=== PATIENT | female | born 1965 | race Caucasian/White ===

== ENCOUNTER 2020-01-14 17:10 | Emergency (ER) | payer MEDICAID ==
[2020-01-14 18:46] LABS: ABSOLUTE BASOPHILS # (AUTO) 0.1 10^3/uL (0.0-0.2); ABSOLUTE EOSINOPHILS # (AUTO) 0.2 10^3/uL (0.0-0.6); ABSOLUTE LYMPHOCYTES (AUTO) 2.7 10^3/uL (0.5-4.7); ABSOLUTE MONOCYTES (AUTO) 0.7 10^3/uL (0.1-1.4); ABSOLUTE NEUT (AUTO) 6.5 10^3/uL (1.7-8.2); BASOPHILS % (AUTO) 0.6 % (0-2); EOSINOPHILS % (AUTO) 1.5 % (0-6); HEMOGLOBIN 15.5 g/dL (12.0-15.5); INTERNATIONAL RATION (INR) 0.85; LYMPHOCYTES % (AUTO) 26.5 % (13-45); MEAN CORPUSCULAR HEMOGLOBIN 32.3 pg (27.0-33.4); MEAN CORPUSCULAR HGB CONC 34.5 g/dL (32.0-36.0); MEAN CORPUSCULAR VOLUME 94 fl (80-97); MONOCYTES % (AUTO) 7.2 % (3-13); PLATELET COUNT 361 10^3/uL (150-450); PROTHROMBIN TIME 11.6 SEC (11.4-15.4); RED CELL DISTRIBUTION WIDTH 13.1 % (11.5-14.0); SEGMENTED NEUTROPHILS % (AUTO) 64.2 % (42-78); TOTAL CELLS COUNTED % (AUTO) 100 %; WHITE BLOOD COUNT 10.1 10^3/uL (4.0-10.5)
[2020-01-14 18:57] LABS: ALBUMIN 4.8 g/dL (3.5-5.0); ALKALINE PHOSPHATASE 91 U/L (38-126); ANION GAP 7 (5-19); ASPARTATE AMINO TRANSFERASE 91 U/L (14-36); BILIRUBIN,DIRECT 0.1 mg/dL (0.0-0.4); BILIRUBIN,TOTAL 0.8 mg/dL (0.2-1.3); BLOOD UREA NITROGEN 11 mg/dL (7-20); CALCIUM 10.1 mg/dL (8.4-10.2); CARBON DIOXIDE 29 mmol/L (22-30); CHLORIDE 102 mmol/L (98-107); GLUCOSE 116 mg/dL (75-110); POTASSIUM 4.1 mmol/L (3.6-5.0); TOTAL PROTEIN 8.9 g/dL (6.3-8.2)
--- NOTE | 2020-01-14 19:08 | RADIOLOGY REPORT (SQ) ---
EXAM DESCRIPTION: CHEST SINGLE VIEW IMAGES COMPLETED DATE/TIME: 01/14/2020 6:42 pm REASON FOR STUDY: swollen left breast COMPARISON: None. EXAM PARAMETERS: NUMBER OF VIEWS: One view. TECHNIQUE: Single frontal radiographic view of the chest acquired. RADIATION DOSE: NA LIMITATIONS: None. FINDINGS: LUNGS AND PLEURA: No opacities, masses or pneumothorax. No pleural effusion. MEDIASTINUM AND HILAR STRUCTURES: No masses. Contour normal. HEART AND VASCULAR STRUCTURES: Heart normal in size. Normal vasculature. BONES: No acute findings. HARDWARE: None in the chest. OTHER: No other significant finding. IMPRESSION: NO ACUTE RADIOGRAPHIC FINDING IN THE CHEST. TECHNICAL DOCUMENTATION: JOB ID: [id number] 2010 [employer]- All Rights Reserved Reading location - IP/workstation name: [email or web address]
[2020-01-14] MEDS ORDERED: MORPHINE SULFATE 10 MG/ML INJ IV ONE (19:20)
[2020-01-14] MEDS ORDERED: ONDANSETRON HCL INJ/PF 4 MG/2 ML SDV IV ONE (19:20)
--- NOTE | 2020-01-14 19:22 | ER Document Report ---
ED General - General Chief Complaint: Breast Problem Stated Complaint: SHORTNESS OF BREATH Time Seen by Provider: 01/14/20 18:11 - HPI Notes: Patient is a 54-year-old female who presents to the emergency department for evaluation. She states over the last 48 hours she developed hot and cold chills, body aches, and left breast redness. She has pain that she puts at a 3 out of 10 at rest, but states it rises quickly to an 8 out of 10 with any sort of movement. She states she is up-to-date on her mammograms, last one being january. She describes the pain as an aching and throbbing. She has not really tried any medications to make it better. - Related Data Allergies/Adverse Reactions: No Known Allergies Allergy (Verified 01/14/20 17:37) Past Medical History - General Information source: Patient - Social History Smoking Status: Current Some Day Smoker Family History: Reviewed & Not Pertinent Patient has suicidal ideation: No Patient has homicidal ideation: No Infectious Medical History: Reports: Hx MRSA Past Surgical History: Reports: Hx Herniorrhaphy, Hx Orthopedic Surgery Review of Systems - Review of Systems Constitutional: See HPI -: Yes All other systems reviewed and negative Physical Exam - Vital signs Vitals: Temp Pulse Resp BP Pulse Ox 98.6 F 105 H 18 127/79 H 97 01/14/20 17:37 01/14/20 17:37 01/14/20 17:37 01/14/20 17:37 01/14/20 17:37 - Notes Notes: Vital signs reviewed, please refer to chart. Head is normocephalic, atraumatic. Pupils equal round, reactive to light. Neck is supple without meningismus. Heart is regular rate and rhythm. Lungs are clear to auscultation bilaterally. Abdomen is soft, nontender, normoactive bowel sounds throughout. Extremities without cyanosis, clubbing. Posterior calves are nontender. Peripheral pulses are equal. Patient is awake, alert, neurological exam is nonfocal. Examination of the left breast feels diffuse erythema and induration. No palpable fluctuance appreciated. No regional adenopathy. I am unable to express any discharge. Breasts are symmetrical in appearance. Course - Re-evaluation Re-evalutation: 01/14/20 19:19 Patient presents to the emergency department for evaluation. Laboratory investigations were obtained. The patient does appear to have mastitis, al though we talked at length about how this is abnormal in her age group. I explained to the patient that this was certainly concerning for a possibility of inflammatory breast cancer, and further evaluation would definitely need to be pursued. I explained her she needs a mammogram to evaluate for this condition. She voiced understanding. Otherwise, she does have a history of MRSA, so the patient was given a dose of IV clindamycin. We will give her pain medication, antibiotics, and she is to follow-up with primary care. She is to return to the ER with worsening. - Vital Signs Vital signs: Temp Pulse Resp BP Pulse Ox 98.6 F 105 H 18 127/79 H 97 01/14/20 17:37 01/14/20 17:37 01/14/20 17:37 01/14/20 17:37 01/14/20 17:37 - Laboratory Result Diagrams: 01/14/20 18:15 01/14/20 18:15 Laboratory results interpreted by me: 01/14/20 18:15 Glucose 116 H AST 91 H ALT 112 H Total Protein 8.9 H Discharge - Discharge Clinical Impression: Mastitis in female Condition: Stable Disposition: HOME, SELF-CARE Instructions: Mastitis ([facility]) Additional Instructions: Your findings today are most consistent with mastitis, or an infection of the left breast. Given your age group, however, we are unable to rule out a more concerning conditions such as inflammatory breast cancer. It is very important that you seek out mammogram and further testing to rule out this condition. Take all antibiotics as prescribed until gone. Tylenol or ibuprofen as needed for pain. If you develop worsening or new concerning symptoms of any sort, please return immediately to the emergency department for evaluation. Prescriptions: Clindamycin HCl 300 mg PO TID #21 capsule
[2020-01-14] MEDS ORDERED: CLINDAMYCIN 600 MG/D5W RTU 600 MG/50 ML RTUPB IV ONE (20:43)
[2020-01-14 21:58] VITALS: BP 115/78
[2020-01-14] MEDS ORDERED: CLINDAMYCIN PHOSPHATE 750 MG in DEXTROSE 5%-WATER 100 ML IV SCH (22:00)
== END 2020-01-14 22:19 | disposition home or self-care (01) ==
LOC: ER 17:10
DX: N61.0 Mastitis without abscess (principal); N64.4 Mastodynia; R06.02 Shortness of breath; M79.10 Myalgia, unspecified site; F17.200 Nicotine dependence, unspecified, uncomplicated
CPT/HCPCS: 36415; 87040; 83605; 85025; 85610; 80053; 71045; J2270; J2405

== ENCOUNTER 2020-02-15 04:40 | Inpatient (IN) | payer SELFPAY ==
[2020-02-15] MEDS ORDERED: NORMAL SALINE 500 ML IV ONE ×2 (05:26→05:45)
[2020-02-15] MEDS ORDERED: ONDANSETRON HCL INJ/PF 4 MG/2 ML SDV IV ONE (05:28)
[2020-02-15] MEDS ORDERED: MORPHINE SULFATE 10 MG/ML INJ IV ONE (05:28)
[2020-02-15] MEDS ORDERED: FENTANYL CITRATE INJ/PF 100 MCG/2 ML AMPUL IV ONE (05:29)
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
--- NOTE | 2020-02-15 05:44 | RADIOLOGY REPORT (SQ) ---
EXAM DESCRIPTION: XR FEMUR 2 VIEWS COMPLETED DATE/TME: 02/15/2020 00:00 CLINICAL HISTORY: 54 years, Female, bone pain COMPARISON: None. NUMBER OF VIEWS: 3 TECHNIQUE: 3 view left femur LIMITATIONS: None. FINDINGS: Comminuted fracture of the mid femoral diaphysis. Fracture lines are seen extending obliquely along the distal portion of the fracture fragment as well as a fracture line extending obliquely to the intercondylar region of the distal femur. Associated soft tissue changes. Osteopenia. Degenerative change of the knee IMPRESSION: Comminuted fracture of the femur, as above. Fracture lines extend to the intercondylar region. copyright 2010 [employer]- All Rights Reserved
[2020-02-15] MEDS ORDERED: HYDROMORPHONE HCL INJ/PF 2 MG/ML AMPULE IV ONE (05:46)
[2020-02-15 05:58] LABS: INTERNATIONAL RATION (INR) 0.88; PROTHROMBIN TIME 11.9 SEC (11.4-15.4)
[2020-02-15 06:08] LABS: ABSOLUTE EOSINOPHILS # (AUTO) 0.2 10^3/uL (0.0-0.6); ABSOLUTE LYMPHOCYTES (AUTO) 2.9 10^3/uL (0.5-4.7); ABSOLUTE MONOCYTES (AUTO) 0.4 10^3/uL (0.1-1.4); ABSOLUTE NEUT (AUTO) 3.2 10^3/uL (1.7-8.2); BASOPHILS % (AUTO) 0.7 % (0-2); EOSINOPHILS % (AUTO) 2.5 % (0-6); HEMOGLOBIN 13.7 g/dL (12.0-15.5); MEAN CORPUSCULAR HEMOGLOBIN 32.1 pg (27.0-33.4); MEAN CORPUSCULAR HGB CONC 34.2 g/dL (32.0-36.0); MEAN CORPUSCULAR VOLUME 94 fl (80-97); MONOCYTES % (AUTO) 6.2 % (3-13); PLATELET COUNT 330 10^3/uL (150-450); RED BLOOD COUNT 4.26 10^6/uL (3.72-5.28); RED CELL DISTRIBUTION WIDTH 13.2 % (11.5-14.0); SEGMENTED NEUTROPHILS % (AUTO) 47.6 % (42-78); TOTAL CELLS COUNTED % (AUTO) 100 %; WHITE BLOOD COUNT 6.8 10^3/uL (4.0-10.5)
[2020-02-15 06:26] LABS: ALBUMIN 4.1 g/dL (3.5-5.0); ALKALINE PHOSPHATASE 58 U/L (38-126); ANION GAP 9 (5-19); ASPARTATE AMINO TRANSFERASE 75 U/L (14-36); BILIRUBIN,TOTAL 0.2 mg/dL (0.2-1.3); BLOOD UREA NITROGEN 17 mg/dL (7-20); CALCIUM 9.2 mg/dL (8.4-10.2); CARBON DIOXIDE 23 mmol/L (22-30); CHLORIDE 106 mmol/L (98-107); GLUCOSE 112 mg/dL (75-110); POTASSIUM 4.3 mmol/L (3.6-5.0); TOTAL PROTEIN 7.3 g/dL (6.3-8.2)
--- NOTE | 2020-02-15 07:35 | RADIOLOGY REPORT (SQ) ---
AP Portable chest: 02/15/2020 6:33 AM CDT History: 54-year old patient with preoperative respiratory evaluation. Comparison: None available Findings: The cardiomediastinal silhouette is normal in size. No pneumothorax is seen. No acute airspace opacities are seen. No discrete pleural effusion is apparent. Impression: No acute airspace opacities are seen.
[2020-02-15] MEDS ORDERED: BUPIVACAINE HCL 0.5 % INJ/PF 30 ML SDV ONE (07:36)
[2020-02-15] MEDS ORDERED: ONDANSETRON HCL INJ/PF 4 MG/2 ML SDV ONE (07:56)
[2020-02-15] MEDS ORDERED: MIDAZOLAM 2 MG/2 ML INJ ONE (07:56)
[2020-02-15] MEDS ORDERED: PROPOFOL INJ 200 MG/20 ML VIAL IV ONE ×3 (07:56→09:34)
[2020-02-15] MEDS ORDERED: KETAMINE HCL INJ 500 MG/10 ML VIAL ONE (07:56)
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
[2020-02-15] MEDS ORDERED: CLINDAMYCIN PHOSPHATE INJ 300 MG/2 ML SDV ONE (08:12)
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
[2020-02-15] MEDS ORDERED: PROMETHAZINE HCL INJ 25 MG/1 ML VIAL IV PRN (08:56)
[2020-02-15] MEDS ORDERED: FENTANYL CITRATE INJ/PF 100 MCG/2 ML AMPUL IV PRN ×3 (08:56)
[2020-02-15] MEDS ORDERED: MEPERIDINE HCL/PF INJ 25 MG/1 ML DISP.SYRIN IV PRN (08:56)
[2020-02-15] MEDS ORDERED: DIPHENHYDRAMINE HCL 50 MG/ML VIAL IV PRN (08:56)
[2020-02-15] MEDS ORDERED: MORPHINE SULFATE 10 MG/ML INJ IV PRN (08:56)
[2020-02-15] MEDS ORDERED: PHENYLEPHRINE HCL INJ/PF 10 MG/1 ML SDV ONE (10:00)
[2020-02-15] MEDS ORDERED: GLYCOPYRROLATE 1 MG/5 ML VIAL ONE (10:00)
[2020-02-15] MEDS ORDERED: BUPIVACAINE HCL 0.5 % INJ/PF 30 ML SDV INJ ONE (10:19)
[2020-02-15] MEDS ORDERED: HYDROMORPHONE HCL INJ/PF 2 MG/ML AMPULE ONE (10:39)
--- NOTE | 2020-02-15 10:58 | EKG REPORT ---
SEVERITY:- ABNORMAL ECG - SINUS RHYTHM ABNRM R PROG, CONSIDER ASMI OR LEAD PLACEMENT : Confirmed by: Wai Bloom MD 15-Feb-2020 10:57:45
[2020-02-15] MEDS ORDERED: ACETAMINOPHEN 1,000 MG/100 ML RTUPB IV ONE (10:59)
[2020-02-15] MEDS ORDERED: KETOROLAC TROMETHAMINE INJ/PF 30 MG/1 ML SDV ONE (10:59)
--- NOTE | 2020-02-15 11:00 | Operative Report ---
Operative Report DATE OF SURGERY: 02/15/20 PREOPERATIVE DIAGNOSIS: Left distal 1/3 femoral shaft fracture with intra-artic ular extension POSTOPERATIVE DIAGNOSIS: Left distal 1/3 femoral shaft fracture with intra- articular extension OPERATION: Left retrograde intramedullary nail distal 1/3 femoral shaft fracture with intra-articular extension SURGEON: ADONAY RASMUSSEN ANESTHESIA: Spinal COMPLICATIONS: None ESTIMATED BLOOD LOSS: 100 cc PROCEDURE: Indication for above procedure: 54-year-old female who tripped into a large ditch resulting in an injury to her left leg. Patient was unable to ambulate radiographs in emergency room demonstrate distal femur fracture. At that point we discussed treatment options including operative versus nonoperative intervention. Risk and benefits of the surgical procedure were explained patient verbalized understanding consented for surgical procedure. Procedure In Detail: Patient was seen and evaluated in the preoperative holding area. The LEFT lower extremity was initialized and marked. Patient received 600 mg of clindamycin IV for bacterial prophylaxis. Patient was taken back to the operative room where transferred to the operative table and placed under anesthesia and spinal placed. A surgical team debriefing was performed ensuring all instrumentation was available, the surgical procedure was discussed with possible concerns reviewed. The lower extremity was prepped with ChloraPrep and draped in a sterile fashion A timeout was done identifying correct patient, procedure and extremity everyone in attendance agree with this and verbalized no concerns. Longitudinal skin incision was made midline over the patellar tendon. Blunt dissection was performed. Medial parapatellar approach was utilized and patellar tendon retracted laterally to expose the distal femur. Through the arthrotomy intra-articular extension was noted along the anterior aspect of the femur where it exited but was not displaced. The starting point was noted along the intercondylar notch just anterior to blooming stats line confirmed on AP and lateral projection. Once confirmed opening reamer was utilized. With the patient in the radiolucent triangle traction was performed and a bump placed under the fracture site to reduce it out to length in an acceptable alignment. Ball-tipped guidewire was then advanced to the proximal femur and measured to be 380 mm. Reaming then began starting with a 10 mm reamer reaming up to a 13 mm reamer at that point decision was made to place a 12 mm x 380 mm Jerilyn retrograde nail this was advanced across the fracture site while maintaining reduction. Aiming arm was placed distally. Stab incision medially was made near and far cortices drilled and interlocking screw was inserted. This was then repeated a second medial to lateral screw placed and finally a third medial to lateral screw. Due to the intra-articular extension decision was made to place a [place] locking bolt through the nail. Therefore cortices were drilled appropriate guidewire was inserted from lateral to medial and a size 75 bolt was inserted and tightened medially and laterally. Engagement of the goal was confirmed on AP projection. While maintaining reduction of the fracture with traction proceed with proximal locking. Perfect circles were obtained stab incision was made blunt dissection was performed to the anterior cortex of the femur. Soft tissues were protected and the near and far cortices were drilled. Appropriate size locking screw was placed completing fixation of the construct. Final C arm fluoroscopy images were obtained confirming adequate reduction of the fracture. Screw lengths were confirmed appropriate size on multiple oblique views. Patient had no evidence of malrotation or shortening compared to the noninvolved right lower extremity. Wound was copiously irrigated with normal saline. Any remnant bleeding was controlled with cautery until wound was dry. Capsule of the medial patellar approach was closed with interrupted 0 Vicryl suture. Subcutaneous tissues closed with 3-0 Monocryl and Vicryl. Skin was closed with subcuticular 3-0 Monocryl reinforced with Dermabond and Steri-Strips. OpSite dressings were placed. 30 cc of 0.5% ropivacaine without epinephrine was injected for postop pain control. Sponge counts, instrument counts, needle counts were correct. Patient was then awoken from anesthesia. Transferred from the operating room table to the operating room stretcher. There was no intraoperative complications patient tolerated procedure well stable to PACU. Postop plan: Patient will begin physical therapy postop day #1 maintaining partial weightbearing left lower extremity. Will be started on Xarelto for DVT prophylaxis. Implants used: Jerilyn retrograde intramedullary nail 380 mm x 12 mm with 75 mm locking bolt
--- NOTE | 2020-02-15 11:59 | RADIOLOGY REPORT (SQ) ---
EXAM DESCRIPTION: FEMUR LEFT; NO CHG FLUORO IMAGES COMPLETED DATE/TIME: 02/15/2020 10:43 am REASON FOR STUDY: LEFT FEMUR COMPARISON: Left femur two views 02/15/2020 FLUOROSCOPY TIME: 2.4 minutes 8 digital fluoroscopic images saved to PACS. TECHNIQUE: Intra-operative images acquired during surgical procedure to evaluate progress. NUMBER OF IMAGES: 8 digital fluoroscopic images LIMITATIONS: None. FINDINGS: Intra procedural imaging and fluoro during ORIF spiral fracture distal left femur. Good a lignment. Please see the operative report for further details IMPRESSION: IMAGE(S) OBTAINED DURING PROCEDURE. COMMENT: Quality ID [id number]: Final reports for procedures using fluoroscopy that document radiation exp osure indices, or exposure time and number of fluorographic images (if radiation exposure indices are not available) Please consult full operative report of the attending physician for description of the procedure. TECHNICAL DOCUMENTATION: JOB ID: [id number] 2010 [employer]- All Rights Reserved Reading location - IP/workstation name: [email or web address]
--- NOTE | 2020-02-15 11:59 | RADIOLOGY REPORT (SQ) ---
EXAM DESCRIPTION: FEMUR LEFT; NO CHG FLUORO IMAGES COMPLETED DATE/TIME: 02/15/2020 10:43 am REASON FOR STUDY: LEFT FEMUR COMPARISON: Left femur two views 02/15/2020 FLUOROSCOPY TIME: 2.4 minutes 8 digital fluoroscopic images saved to PACS. TECHNIQUE: Intra-operative images acquired during surgical procedure to evaluate progress. NUMBER OF IMAGES: 8 digital fluoroscopic images LIMITATIONS: None. FINDINGS: Intra procedural imaging and fluoro during ORIF spiral fracture distal left femur. Good a lignment. Please see the operative report for further details IMPRESSION: IMAGE(S) OBTAINED DURING PROCEDURE. COMMENT: Quality ID [id number]: Final reports for procedures using fluoroscopy that document radiation exp osure indices, or exposure time and number of fluorographic images (if radiation exposure indices are not available) Please consult full operative report of the attending physician for description of the procedure. TECHNICAL DOCUMENTATION: JOB ID: [id number] 2010 [employer]- All Rights Reserved Reading location - IP/workstation name: [email or web address]
[2020-02-15] MEDS: CLINDAMYCIN 600 MG/D5W RTU 600 MG/50 ML RTUPB IV SCH ×2 (12:10→13:47)
[2020-02-15] MEDS: MORPHINE SULFATE 10 MG/ML INJ IV PRN ×2 (12:14→17:20)
[2020-02-15] MEDS: OXYCODONE HCL SR 10 MG TABLET PO SCH ×2 (12:55→22:49)
[2020-02-15] MEDS: ONDANSETRON HCL INJ/PF 4 MG/2 ML SDV IV PRN ×2 (13:47→17:29)
[2020-02-15] MEDS: RIVAROXABAN 10 MG TABLET PO SCH (18:45)
[2020-02-15] MEDS: OXYCODONE-ACETAMINOPHEN 5-325 MG TABLET PO PRN (20:31)
[2020-02-15] MEDS: RINGERS SOLUTION,LACTATED 1,000 ML IV PRN (20:33)
[2020-02-15] MEDS ORDERED: OXYCODONE HCL SR 10 MG TABLET PO SCH (22:00)
[2020-02-16] MEDS: CLINDAMYCIN 600 MG/D5W RTU 600 MG/50 ML RTUPB IV SCH ×3 (00:05→06:02)
[2020-02-16] MEDS: OXYCODONE-ACETAMINOPHEN 5-325 MG TABLET PO PRN (02:21)
[2020-02-16] MEDS ORDERED: HYDROMORPHONE HCL INJ/PF 2 MG/ML AMPULE IV PRN ×3 (02:35→02:41)
[2020-02-16] MEDS ORDERED: OXYCODONE-ACETAMINOPHEN 5-325 MG TABLET PO PRN (02:36)
[2020-02-16] MEDS: HYDROMORPHONE HCL INJ/PF 2 MG/ML AMPULE IV PRN ×6 (02:49→21:28)
[2020-02-16 06:30] LABS: HEMATOCRIT 28.4 % (36.0-47.0); MEAN CORPUSCULAR HEMOGLOBIN 32.3 pg (27.0-33.4); MEAN CORPUSCULAR HGB CONC 34.4 g/dL (32.0-36.0); MEAN CORPUSCULAR VOLUME 94 fl (80-97); PLATELET COUNT 235 10^3/uL (150-450); RED BLOOD COUNT 3.03 10^6/uL (3.72-5.28); WHITE BLOOD COUNT 7.4 10^3/uL (4.0-10.5)
[2020-02-16 06:33] LABS: HEMOGLOBIN 9.8 g/dL (12.0-15.5)
[2020-02-16] MEDS: ONDANSETRON HCL INJ/PF 4 MG/2 ML SDV IV PRN ×2 (08:29→18:43)
[2020-02-16] MEDS: OXYCODONE HCL SR 10 MG TABLET PO SCH ×2 (10:44→22:47)
[2020-02-16] MEDS ORDERED: ACETAMINOPHEN 325 MG TABLET ONE (12:35)
[2020-02-16] MEDS ORDERED: ACETAMINOPHEN 325 MG TABLET PO PRN (13:02)
[2020-02-16] MEDS ORDERED: PROMETHAZINE HCL INJ 25 MG/1 ML VIAL IV PRN (13:04)
--- NOTE | 2020-02-16 17:33 | PDOC PROGRESS REPORT ---
Subjective Progress Note for:: 02/16/20 Subjective:: Patient continues to complain of pain. Currently has been unable to tolerate the pain without IV Dilaudid which does provide her some relief. Was able to get up to the chair with physical therapy but has limited independence at this point. Patient also has additional complaint of bloody discharge from her left breast and was diagnosed with mastitis approximately 1 month ago, but never followed up as recommended with a primary care physician. Patient denies chest pain shortness breath nausea vomiting diarrhea. Reason For Visit: LEFT FEMUR FRACTURE Physical Exam Vital Signs: Temp Pulse Resp BP Pulse Ox 98.9 F 83 16 110/67 98 02/16/20 15:25 02/16/20 15:25 02/16/20 15:25 02/16/20 15:25 02/16/20 15:25 Intake & Output 02/15/20 02/16/20 02/17/20 06:59 06:59 06:59 Intake Total 1000 3080 530 Output Total 1980 200 Balance 1000 1100 330 Weight 68.039 kg 83.3 kg Musculoskeletal exam: PRESENT: other - Left lower extremity: Dressing clean/dry/intact no erythema or drainage. Moderate thigh swelling without change, intact plantarflexion/dorsiflexion. No sensory deficits. No calf tenderness. Results Laboratory Results: 02/16/20 05:20 02/15/20 05:20 02/16/20 05:20 WBC 7.4 RBC 3.03 L Hgb 9.8 L D Hct 28.4 L MCV 94 MCH 32.3 MCHC 34.4 RDW 13.0 Plt Count 235 Impressions: Femur X-Ray 02/15/20 00:00 IMPRESSION: IMAGE(S) OBTAINED DURING PROCEDURE. Fluoroscopy 02/15/20 00:00 IMPRESSION: IMAGE(S) OBTAINED DURING PROCEDURE. Assessment & Plan - Diagnosis (1) Fracture of femur, left, closed Qualifiers: Encounter type: initial encounter Femur location: shaft Fracture morphology: spiral Fracture alignment: displaced Qualified Code(s): S72.342A - Displaced spiral fracture of shaft of left femur, initial encounter for closed fracture Is this a current diagnosis for this admission?: Yes Plan: Postop day #1 status post left retrograde nail distal femur fracture 1. Physical therapy partial weightbearing 2. Pain control Dilaudid, OxyContin and oxycodone 3. We will start trazodone for patient's insomnia patient has tried trazodone in the past with relief 4. History of prior mastitis I have recommended reconsultation of the hospitalist for further evaluation and guidance 5. Elevated LFTs patient is to follow-up with primary care physician as outpatient 6. Discharge planning anticipate discharge within the next 48-72 hours pending physical therapy. - Time Time Spent with patient: Less than 15 minutes
--- NOTE | 2020-02-16 18:19 | PDOC CONSULTATION ---
Consultation Consult Date: 02/16/20 Attending physician:: ADONAY RASMUSSEN Provider Consulted: LIANNE RIVERS JR Consult reason:: galactorrhea History of Present Illness Admission Date/PCP: 02/15/20 05:50 History of Present Illness: MARGARET KELLY is a 54 year old female this morning at approximately 0430 hrs. stepped out of her car and unfortunately stepped into a ditch causing her to have severe immediate left thigh pain.. States it was dark and she did not know the ditch was beside the car in felt immediate searing pain of the left femur.. Patient presents to the emergency room where she has a comminuted fracture of the distal left femur. It is scheduled for surgery this morning. Patient tells me she has no history of diabetes no history of hypertension no history of MA no history of CVA. Takes no medicines on a regular basis. Patient is highly allergic to sulfa drugs with hives and respiratory difficulty. 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 Patient desires to be a full code. This actually is a new consult for new problem concerning her left breast. Patient states that about a month ago she had her left breast was very red inflamed and tender. To the emergency room where she was given IV antibiotics and a prescription to get filled for probable mastitis. Patient showed me an actual photograph of her left breast and she did in fact have what appears to be clinically significant mastitis. Patient states that unfortunately she did not have the money to get the prescription filled so really all she took was the IV antibiotics she got in the emergency room. She said however that it cleared up and the redness and the inflammation and pain went away. However in the last day or 2 she is noticed that she has had a bloody discharge from her left nipple when she squeezes it. There is no tenderness there is no redness there is no swelling there is no pain associated with the left breast as there was 1 month ago. She reports that she had her last mammogram done about 3 years ago. Patient reports that she is always had cystic changes but never had a biopsy never had any type of history of breast cancer either in herself or her immediate family. With a e commerce merchandising coordinator present the patient was examined. Past Medical History Musculoskeltal Medical History: Reports: Other - Fracture of left femur 24 hours ago Psychiatric Medical History: Denies: Depression Infectious Medical History: Reports: Methicillin-Resistant Staph Aureus Past Surgical History Past Surgical History: Reports: Herniorrhaphy, Orthopedic Surgery Social History Smoking Status: Current Every Day Smoker Cigarettes Packs Per Day: 0.5 Electronic Cigarette use?: No Cigars Per Day: 0 Pipes Per Day: 0 Number of Years Smokin Last Time Smoked: 02/14/2020 Frequency of Alcohol Use: Occasional Hx Recreational Drug Use: No Hx Prescription Drug Abuse: No Family History Family History: Reviewed & Not Pertinent Parental Family History Reviewed: No Children Family History Reviewed: No Sibling(s) Family History Reviewed.: No Medication/Allergy Home Medications: No Home Medications 02/15/20 Allergies/Adverse Reactions: adhesive tape Allergy (Mild, Verified 02/15/20 14:20) bee venom protein (honey bee) Allergy (Verified 02/15/20 14:18) Sulfa (Sulfonamide Antibiotics) Allergy (Verified 02/15/20 05:34) Review of Systems Constitutional: ABSENT: chills, fever(s), headache(s), weight gain, weight loss Breasts: PRESENT: other - Patient states that ever since her last child who is now 21 years old she has had episodic events of galactorrhea mostly just either clear or white fluid that would occasionally be expressed from both nipples Cardiovascular: ABSENT: chest pain, dyspnea on exertion, edema, orthropnea, palpitations Respiratory: ABSENT: cough, hemoptysis Physical Exam Vital Signs: Temp Pulse Resp BP Pulse Ox 98.9 F 83 16 110/67 98 02/16/20 15:25 02/16/20 15:25 02/16/20 15:25 02/16/20 15:25 02/16/20 15:25 Intake & Output 02/15/20 02/16/20 02/17/20 06:59 06:59 06:59 Intake Total 1000 3080 530 Output Total 1980 200 Balance 1000 1100 330 Weight 68.039 kg 83.3 kg General appearance: PRESENT: no acute distress Breast: PRESENT: Drainage, Other - Both breast and axillary lymph nodes were examined. She has no evidence of adenopathy. Appearance of breast reveals no dimpling no retraction. No redness. No tenderness with examination.2 or 3 small drops of blood were expressed from the left nipple. No drainage from the right nipple Results Laboratory Results: 02/16/20 05:20 02/15/20 05:20 02/16/20 05:20 WBC 7.4 RBC 3.03 L Hgb 9.8 L D Hct 28.4 L MCV 94 MCH 32.3 MCHC 34.4 RDW 13.0 Plt Count 235 Impressions: Femur X-Ray 02/15/20 00:00 IMPRESSION: IMAGE(S) OBTAINED DURING PROCEDURE. Fluoroscopy 02/15/20 00:00 IMPRESSION: IMAGE(S) OBTAINED DURING PROCEDURE. Assessment and Plan - Diagnosis (1) Severe lower extremity pain Is this a current diagnosis for this admission?: Yes (2) Fall Qualifiers: Encounter type: initial encounter Qualified Code(s): W19.XXXA - Unspecified fall, initial encounter Is this a current diagnosis for this admission?: Yes (3) Fracture of femur, left, closed Qualifiers: Encounter type: initial encounter Femur location: shaft Fracture morphology: spiral Fracture alignment: displaced Qualified Code(s): S72.342A - Displaced spiral fracture of shaft of left femur, initial encounter for closed fracture Is this a current diagnosis for this admission?: Yes (4) Elevated liver function tests Is this a current diagnosis for this admission?: Yes (5) Unresolved mastitis Is this a current diagnosis for this admission?: Yes - Plan Summary Summary: Patient's labs are all reviewed, patient's x-ray is reviewed and compared to previous chest x-ray dated January 14, 2020, patient's EKG is reviewed with no previous EKGs to compare to. Patient's LFTs are elevated however they are down somewhat from previous lab findings January 14, 2020. Needs to be investigated further once patient had surgery, as an outpatient. , Currently see no contraindications to general anesthesia. We will sign off if needed further please reconsult, patient appears to have no medical issues. 02/16/2020 Of course I am concerned that this may be early breast cancer and patient will have to have mammograms as soon as she finishes a 10-day course of antibiotics. Feel like if we did the mammogram while she had the mastitis and was on antibiotics that it may alter the actual radiographic studies. Therefore we will start antibiotics while she is in the hospital and discharge her on a completed course with a prescription. We will try to order the mammograms as an outpatient before she is discharged to be assured that she has these done. I explained all this to the patient, she seems to understand these instructions and agrees. She understands the gravity of the situation and the importance of completing both the antibiotics and follow-up with the mammograms. I am going to check some hormones, thyroid, pituitary gland. Patient denies being on any hormones. No sign of abscess. - Time Time Spent with patient: 35 or more minutes
[2020-02-16] MEDS: RIVAROXABAN 10 MG TABLET PO SCH (18:38)
[2020-02-16 19:12] LABS: FREE T3 4.25 pg/mL (2.77-5.27); FREE T4 (FREE THYROXINE) 1.12 ng/dL (0.78-2.19)
[2020-02-16 19:26] LABS: THYROID STIMULATING HORMONE 2.06 uIU/mL (0.47-4.68)
[2020-02-16] MEDS ORDERED: DICLOXACILLIN SODIUM 250 MG CAPSULE ONE (19:42)
[2020-02-16] MEDS: TRAZODONE HCL 50 MG TABLET PO SCH (21:29)
[2020-02-17] MEDS: DICLOXACILLIN SODIUM 250 MG CAPSULE PO SCH ×6 (00:12→21:42)
[2020-02-17] MEDS: RINGERS SOLUTION,LACTATED 1,000 ML IV PRN ×2 (00:18→08:26)
[2020-02-17] MEDS: HYDROMORPHONE HCL INJ/PF 2 MG/ML AMPULE IV PRN ×3 (00:24→10:54)
[2020-02-17 05:18] LABS: HEMATOCRIT 24.3 % (36.0-47.0); HEMOGLOBIN 8.4 g/dL (12.0-15.5); MEAN CORPUSCULAR HEMOGLOBIN 32.8 pg (27.0-33.4); MEAN CORPUSCULAR HGB CONC 34.8 g/dL (32.0-36.0); MEAN CORPUSCULAR VOLUME 94 fl (80-97); PLATELET COUNT 201 10^3/uL (150-450); RED BLOOD COUNT 2.57 10^6/uL (3.72-5.28); RED CELL DISTRIBUTION WIDTH 12.9 % (11.5-14.0); WHITE BLOOD COUNT 6.4 10^3/uL (4.0-10.5)
--- NOTE | 2020-02-17 08:56 | PDOC PROGRESS REPORT ---
Subjective Progress Note for:: 02/17/20 Reason For Visit: LEFT FEMUR FRACTURE 54-year-old white female now postop day 2 status post ORIF of a left femur fracture. Limited progress with physical therapy because of nausea and vomiting. Patient's pain levels require ongoing parenteral Dilaudid. Physical Exam Vital Signs: Temp Pulse Resp BP Pulse Ox 37.8 C 96 18 108/62 93 02/17/20 07:47 02/17/20 07:47 02/17/20 07:47 02/17/20 07:47 02/17/20 07:47 Intake & Output 02/16/20 02/17/20 02/18/20 06:59 06:59 06:59 Intake Total 3080 1770 569 Output Total 1980 800 Balance 1100 970 569 Weight 83.3 kg 83.4 kg Physical Exam: Patient is in a hospital bed. She is alert, oriented, and appropriate. General appearance: PRESENT: mild distress Head exam: PRESENT: normocephalic Respiratory exam: PRESENT: unlabored Cardiovascular exam: PRESENT: RRR GI/Abdominal exam: PRESENT: soft Rectal exam: PRESENT: deferred Extremities exam: PRESENT: other - Right lower extremity dressings are clean and dry. Neurological exam: PRESENT: alert, awake, oriented to person, oriented to place, oriented to time, oriented to situation. ABSENT: motor sensory deficit Psychiatric exam: PRESENT: agitated Skin exam: PRESENT: dry, intact, warm. ABSENT: cyanosis, rash Results Laboratory Results: 02/17/20 04:28 02/15/20 05:20 02/16/20 02/17/20 05:20 04:28 WBC 6.4 RBC 2.57 L Hgb 8.4 L Hct 24.3 L MCV 94 MCH 32.8 MCHC 34.8 RDW 12.9 Plt Count 201 TSH 2.06 Free T4 1.12 Free T3 pg/mL 4.25 Impressions: Femur X-Ray 02/15/20 00:00 IMPRESSION: IMAGE(S) OBTAINED DURING PROCEDURE. Fluoroscopy 02/15/20 00:00 IMPRESSION: IMAGE(S) OBTAINED DURING PROCEDURE. Status: Imported from PACS Assessment & Plan - Diagnosis (1) Fracture of femur, left, closed Qualifiers: Encounter type: initial encounter Femur location: shaft Fracture morpholo gy: spiral Fracture alignment: displaced Qualified Code(s): S72.342A - Displaced spiral fracture of shaft of left femur, initial encounter for closed fracture Is this a current diagnosis for this admission?: Yes Plan: Mobilize with physical therapy on a touchdown weightbearing restriction on the left lower extremity. Ongoing IV narcotic use is probably complicating the amilcar ent's rehab with her nausea and vomiting and precluding physical therapy. I think the patient would be much better off served on oral analgesics. A pain management consult has been entered for this purpose. - Time Time Spent with patient: 15-24 minutes Anticipated discharge: Home with Homehealth Within: within 24 hours
[2020-02-17] MEDS: TRAZODONE HCL 50 MG TABLET PO SCH ×2 (10:08→21:42)
[2020-02-17] MEDS: ONDANSETRON HCL INJ/PF 4 MG/2 ML SDV IV PRN (10:54)
[2020-02-17] MEDS: FAMOTIDINE 20 MG TABLET PO SCH ×2 (12:06→21:42)
[2020-02-17] MEDS: HYDROMORPHONE HCL 2 MG TABLET PO SCH ×3 (13:49→21:41)
--- NOTE | 2020-02-17 14:31 | PDOC PROGRESS REPORT ---
Subjective Progress Note for:: 02/17/20 Reason For Visit: LEFT FEMUR FRACTURE 02/17/2020 Currently seeing patient as a consult for bloody discharge from the left nipple Patient did have fracture of the left femur 2 days ago with nail procedure Patient has no chronic illnesses Physical Exam Vital Signs: Temp Pulse Resp BP Pulse Ox 99.7 F 100 18 116/52 L 90 L 02/17/20 11:25 02/17/20 11:25 02/17/20 11:25 02/17/20 11:25 02/17/20 11:25 Intake & Output 02/16/20 02/17/20 02/18/20 06:59 06:59 06:59 Intake Total 3080 1770 809 Output Total 0382 993 2212 Balance 1100 970 -191 Weight 83.3 kg 83.4 kg General appearance: PRESENT: no acute distress Respiratory exam: PRESENT: clear to auscultation loida. ABSENT: rales, rhonchi, wheezes Cardiovascular exam: PRESENT: RRR. ABSENT: diastolic murmur, rubs, systolic murmur Neurological exam: PRESENT: alert, awake, oriented to person, oriented to place, oriented to time, oriented to situation, CN II-XII grossly intact. ABSENT: motor sensory deficit Psychiatric exam: PRESENT: appropriate affect, normal mood. ABSENT: homicidal ideation, suicidal ideation Results Laboratory Results: 02/17/20 04:28 02/15/20 05:20 02/16/20 02/17/20 05:20 04:28 WBC 6.4 RBC 2.57 L Hgb 8.4 L Hct 24.3 L MCV 94 MCH 32.8 MCHC 34.8 RDW 12.9 Plt Count 201 TSH 2.06 Free T4 1.12 Free T3 pg/mL 4.25 Impressions: Femur X-Ray 02/15/20 00:00 IMPRESSION: IMAGE(S) OBTAINED DURING PROCEDURE. Fluoroscopy 02/15/20 00:00 IMPRESSION: IMAGE(S) OBTAINED DURING PROCEDURE. Assessment and Plan - Diagnosis (1) Severe lower extremity pain Is this a current diagnosis for this admission?: Yes (2) Fall Qualifiers: Encounter type: initial encounter Qualified Code(s): W19.XXXA - Unspecified fall, initial encounter Is this a current diagnosis for this admission?: Yes (3) Fracture of femur, left, closed Qualifiers: Encounter type: initial encounter Femur location: shaft Fracture morphology: spiral Fracture alignment: displaced Qualified Code(s): S72.342A - Displaced spiral fracture of shaft of left femur, initial encounter for closed fracture Is this a current diagnosis for this admission?: Yes (4) Elevated liver function tests Is this a current diagnosis for this admission?: Yes (5) Unresolved mastitis Is this a current diagnosis for this admission?: Yes - Plan Summary Summary: Patient's labs are all reviewed, patient's x-ray is reviewed and compared to previous chest x-ray dated January 14, 2020, patient's EKG is reviewed with no previous EKGs to compare to. Patient's LFTs are elevated however they are down somewhat from previous lab findings January 14, 2020. Needs to be investigated further once patient had surgery, as an outpatient. , Currently see no contraindications to general anesthesia. We will sign off if needed further please reconsult, patient appears to have no medical issues. 02/16/2020 Of course I am concerned that this may be early breast cancer and patient will have to have mammograms as soon as she finishes a 10-day course of antibiotics. Feel like if we did the mammogram while she had the mastitis and was on antibiotics that it may alter the actual radiographic studies. Therefore we will start antibiotics while she is in the hospital and discharge her on a completed course with a prescription. We will try to order the mammograms as an outpatient before she is discharged to be assured that she has these done. I explained all this to the patient, she seems to understand these instructions and agrees. She understands the gravity of the situation and the importance of completing both the antibiotics and follow-up with the mammograms. I am going to check some hormones, thyroid, pituitary gland. Patient denies being on any hormones. No sign of abscess. 02/17/2020 Currently on dicloxacillin 500 mg 4 times daily will need 10-day course White blood cell count remains normal 6.4 hemoglobin is stable 8.4, this is trended down since surgery will need to watch Thyroid functions are normal but prolactin level slightly elevated 37.4. This can be elevated due to stress. This month patient did have a very significant mastitis on the left. Course patient just had a traumatic injury to the left femur resulting in surgery. These could possibly be attributing to her elevated prolactin level. However I am going to order a MRI scan of the brain with gadolinium with attention to the pituitary looking for adenoma. I have called radiology and spoken to MRI and they said that the procedure she had done for her fractured femur should not interfere with her MRI scan also given her the name of a nurse practitioner that she is going to see after discharge for mammogram of both breast. Roberta Kaiden [phone]. Unfortunately hospitalist cannot order m ammograms it needs to be someone that has a private practice. So with the patient currently having unresolved mastitis it would be better to have the mammograms done once the infection has cleared. Patient has had 1 day of dicloxacillin and will need 9 more. I Have explained all this to the patient - Time Time Spent with patient: 25-34 minutes
[2020-02-17] MEDS: RIVAROXABAN 10 MG TABLET PO SCH (16:10)
--- NOTE | 2020-02-17 20:32 | RADIOLOGY REPORT (SQ) ---
EXAM DESCRIPTION: MR BRAIN WITHOUT THEN WITH IV CONTRAST COMPLETED DATE/TME: 02/17/2020 00:00 CLINICAL HISTORY: 54 years, Female, Left pituitary adenoma, elevated prolactin level COMPARISON: None. TECHNIQUE: Multiplanar, multisequence MR images of the brain were obtained both prior to and after the uneventful administration of intravenous contrast. Images stored on PACS. LIMITATIONS: None. FINDINGS: Study is somewhat limited by excessive motion artifact, especially on the postcontrast sequences. Midline structures show no suspicious abnormality. Diffusion weighted images reveal no foci of diffusion restriction. Evaluation of the brain parenchyma reveals no suspicious signal abnormality. Intracranial arterial and venous flow voids appear normal. There are no extra-axial fluid collections. Ventricles and sulcal spaces are normal in size and configuration. Globes and orbits appear normal. Paranasal sinuses and mastoid air cells are clear. The pituitary gland appears normal in signal intensity. The infundibulum is midline. Postcontrast images reveal no foci of abnormal enhancement about the brain parenchyma. However, on the postcontrast images through the pituitary gland, there is a focus of asymmetric hypoenhancement located about its leftward aspect on image 12 of series 16 measuring 0.2 x 0.3 cm in size. However, it is difficult to corroborate this finding on the coronal thin images secondary to the presence of excessive motion artifact. IMPRESSION: Subtle asymmetric hypoenhancement about the leftward aspect of the pituitary gland, seen only on a single coronal acquisition. Given the provided history, this could correspond to a small pituitary microadenoma. Correlation with prior imaging would be of benefit to confirm/assess for stability of this finding. Otherwise, no additional suspicious findings within the remainder of the brain parenchyma. copyright 2011 [employer]- All Rights Reserved
[2020-02-18] MEDS: HYDROMORPHONE HCL 2 MG TABLET PO SCH ×6 (01:25→21:43)
[2020-02-18] MEDS: DICLOXACILLIN SODIUM 250 MG CAPSULE PO SCH ×4 (03:58→21:43)
[2020-02-18 05:40] LABS: HEMATOCRIT 23.3 % (36.0-47.0); HEMOGLOBIN 8.1 g/dL (12.0-15.5); MEAN CORPUSCULAR HEMOGLOBIN 32.7 pg (27.0-33.4); MEAN CORPUSCULAR HGB CONC 34.7 g/dL (32.0-36.0); MEAN CORPUSCULAR VOLUME 94 fl (80-97); PLATELET COUNT 208 10^3/uL (150-450); RED BLOOD COUNT 2.47 10^6/uL (3.72-5.28); RED CELL DISTRIBUTION WIDTH 12.5 % (11.5-14.0); WHITE BLOOD COUNT 6.3 10^3/uL (4.0-10.5)
--- NOTE | 2020-02-18 06:59 | PDOC PROGRESS REPORT ---
Subjective Progress Note for:: 02/18/20 Reason For Visit: LEFT FEMUR FRACTURE 54-year-old white female now postop day 3 status post ORIF of a left femur fracture. Patient made progress with physical therapy yesterday. Pain seems to be better controlled. Intermittent febrile episodes with T-max 38.1 degrees. Hematocrit is dropped to 23%. Physical Exam Vital Signs: Temp Pulse Resp BP Pulse Ox 37.0 C 80 17 100/60 92 02/18/20 04:00 02/17/20 23:38 02/17/20 23:38 02/17/20 23:38 02/17/20 23:38 Intake & Output 02/16/20 02/17/20 02/18/20 06:59 06:59 06:59 Intake Total 3080 1770 3371 Output Total 0783 864 4480 Balance 1100 970 -2229 Weight 83.3 kg 83.4 kg 81 kg General appearance: PRESENT: no acute distress, mild distress Respiratory exam: PRESENT: unlabored Cardiovascular exam: PRESENT: RRR Extremities exam: PRESENT: other - Left lower extremity dressings clean dry and intact. Ecchymosis present. Results Laboratory Results: 02/18/20 04:48 02/15/20 05:20 02/18/20 04:48 WBC 6.3 RBC 2.47 L Hgb 8.1 L Hct 23.3 L MCV 94 MCH 32.7 MCHC 34.7 RDW 12.5 Plt Count 208 Impressions: Femur X-Ray 02/15/20 00:00 IMPRESSION: IMAGE(S) OBTAINED DURING PROCEDURE. Fluoroscopy 02/15/20 00:00 IMPRESSION: IMAGE(S) OBTAINED DURING PROCEDURE. Head MRI 02/17/20 00:00 IMPRESSION: Subtle asymmetric hypoenhancement about the leftward aspect of the pituitary gland, seen only on a single coronal acquisition. Given the provided history, this could correspond to a small pituitary microadenoma. Correlation with prior imaging would be of benefit to confirm/assess for stability of this finding. Otherwise, no additional suspicious findings within the remainder of the brain parenchyma. copyright 2011 [employer]- All Rights Reserved Assessment & Plan - Diagnosis (1) Fracture of femur, left, closed Qualifiers: Encounter type: initial encounter Femur location: shaft Fracture morphology: spiral Fracture alignment: displaced Qualified Code(s): S72.342A - Displaced spiral fracture of shaft of left femur, initial encounter for closed fracture Is this a current diagnosis for this admission?: Yes Plan: Continue to mobilize with physical therapy and a touchdown weightbearing restriction on the left lower extremity. Patient received 2 units of packed red blood cells with repeat laboratory evaluation in the morning. - Time Time Spent with patient: 15-24 minutes
[2020-02-18 10:00] LABS: ABSOLUTE EOSINOPHILS # (AUTO) 0.1 10^3/uL (0.0-0.6); ABSOLUTE LYMPHOCYTES (AUTO) 1.8 10^3/uL (0.5-4.7); ABSOLUTE MONOCYTES (AUTO) 0.8 10^3/uL (0.1-1.4); ABSOLUTE NEUT (AUTO) 3.7 10^3/uL (1.7-8.2); BASOPHILS % (AUTO) 0.3 % (0-2); EOSINOPHILS % (AUTO) 1.8 % (0-6); HEMATOCRIT 23.8 % (36.0-47.0); HEMOGLOBIN 8.3 g/dL (12.0-15.5); LYMPHOCYTES % (AUTO) 28.1 % (13-45); MEAN CORPUSCULAR HEMOGLOBIN 32.9 pg (27.0-33.4); MEAN CORPUSCULAR VOLUME 94 fl (80-97); MONOCYTES % (AUTO) 11.8 % (3-13); PLATELET COUNT 241 10^3/uL (150-450); RED BLOOD COUNT 2.53 10^6/uL (3.72-5.28); RED CELL DISTRIBUTION WIDTH 12.6 % (11.5-14.0); TOTAL CELLS COUNTED % (AUTO) 100 %; WHITE BLOOD COUNT 6.4 10^3/uL (4.0-10.5)
[2020-02-18] MEDS: TRAZODONE HCL 50 MG TABLET PO SCH ×2 (10:18→21:44)
[2020-02-18] MEDS: FAMOTIDINE 20 MG TABLET PO SCH ×2 (10:18→21:44)
[2020-02-18 10:19] LABS: BLOOD UREA NITROGEN 9 mg/dL (7-20); CALCIUM 8.5 mg/dL (8.4-10.2); CARBON DIOXIDE 33 mmol/L (22-30); CHLORIDE 97 mmol/L (98-107); GLUCOSE 126 mg/dL (75-110); POTASSIUM 4.3 mmol/L (3.6-5.0)
[2020-02-18 10:33] LABS: ANION GAP 4 (5-19)
--- NOTE | 2020-02-18 13:18 | PDOC PROGRESS REPORT ---
Subjective Progress Note for:: 02/18/20 Subjective:: Patient is doing well today. She is still having galactorrhea which she states is been chronic for the past few years. Discharge from left nipple still has some blood tinge in it. Denies significant pain in the region but is tender. Reason For Visit: LEFT FEMUR FRACTURE Physical Exam Vital Signs: Temp Pulse Resp BP Pulse Ox 99.0 F 84 18 112/55 L 90 L 02/18/20 07:49 02/18/20 07:49 02/18/20 07:49 02/18/20 07:49 02/18/20 07:49 Intake & Output 02/17/20 02/18/20 02/19/20 06:59 06:59 06:59 Intake Total 1770 3371 Output Total 800 5600 Balance 970 -2229 Weight 83.4 kg 81 kg General appearance: PRESENT: no acute distress, cooperative Eye exam: ABSENT: scleral icterus Neck exam: ABSENT: JVD Respiratory exam: PRESENT: symmetrical, unlabored. ABSENT: accessory muscle use, retraction, tachypnea Breast: PRESENT: Tenderness, Drainage - milky fluid expressed from both nipples but drainage from left nipple has some blood in it. ABSENT: Ecchymosis, Lesion Neurological exam: PRESENT: alert, awake, oriented to person, oriented to place, oriented to time Psychiatric exam: PRESENT: appropriate affect Focused psych exam: ABSENT: pressured speech Skin exam: ABSENT: jaundice Results Laboratory Results: 02/18/20 09:37 02/18/20 09:37 02/18/20 02/18/20 02/18/20 04:48 09:37 09:37 WBC 6.3 6.4 RBC 2.47 L 2.53 L Hgb 8.1 L 8.3 L Hct 23.3 L 23.8 L MCV 94 94 MCH 32.7 32.9 MCHC 34.7 35.0 RDW 12.5 12.6 Plt Count 208 241 Seg Neutrophils % 58.0 Sodium 134.4 L Potassium 4.3 Chloride 97 L Carbon Dioxide 33 H Anion Gap 4 L BUN 9 Creatinine 0.67 Est GFR ( Amer) > 60 Glucose 126 H Calcium 8.5 Blood Type Antibody Screen 02/18/20 09:37 WBC RBC Hgb Hct MCV MCH MCHC RDW Plt Count Seg Neutrophils % Sodium Potassium Chloride Carbon Dioxide Anion Gap BUN Creatinine Est GFR ( Amer) Glucose Calcium Blood Type A POSITIVE Antibody Screen POSITIVE Impressions: Femur X-Ray 02/15/20 00:00 IMPRESSION: IMAGE(S) OBTAINED DURING PROCEDURE. Fluoroscopy 02/15/20 00:00 IMPRESSION: IMAGE(S) OBTAINED DURING PROCEDURE. Head MRI 02/17/20 00:00 IMPRESSION: Subtle asymmetric hypoenhancement about the leftward aspect of the pituitary gland, seen only on a single coronal acquisition. Given the provided history, this could correspond to a small pituitary microadenoma. Correlation with prior imaging would be of benefit to confirm/assess for stability of this finding. Otherwise, no additional suspicious findings within the remainder of the brain parenchyma. copyright 2011 [employer]- All Rights Reserved Assessment and Plan - Diagnosis (1) Bloody discharge from left nipple Is this a current diagnosis for this admission?: Yes (2) Hyperprolactinemia Is this a current diagnosis for this admission?: Yes (3) Galactorrhea not associated with childbirth Is this a current diagnosis for this admission?: Yes (4) Unresolved mastitis Is this a current diagnosis for this admission?: Yes - Plan Summary Summary: Patient informs me that galacturia has been chronic for the past several years and that she sees a provider outpatient for this. Her prolactin is only mildly elevated at 37. Such mild elevation of prolactin is typically not associated with prolactinoma which typically has prolactin le vels in the 200s or above. Head MRI showed very mild subtle hypoattenuation of the left pituitary which could be indicative of a microadenoma but also could just be artifactual. I do not recommend any intervention or medical therapy for this at this time. Patient should follow-up with a primary care provider outpatient for further management/work-up of her galactorrhea and mild hyperprolactinemia. In regards to patient's bloody nipple discharge, as noted, patient was diagnosed with mastitis and is being treated with a 10-day course of dicloxacillin 500 mg 4 times daily. I have highly emphasized the patient that she will need to get mammogram done in 1 month to evaluate for underlying malignancy. She expressed understanding. The prior provider has also recommended a silk screen printer machine for patient to follow-up by the name of Roberta Richey [phone]. No further recommendations at this time. Feel free to call with questions. [phone]. - Time Time Spent with patient: Less than 15 minutes
--- NOTE | 2020-02-18 13:55 | CDI QUERY ---
CDI Query CDI Review: Dear Provider: To better reflect your patients severity of illness, morbidity, and resource utilization Please specify and document in the Progress Notes and Discharge Summary if you are monitoring / treating / evaluating any of the following conditions: Query Clinical indicators Acute blood loss anemia Post-op blood loss anemia Unable to determine Other Left distal 1/3 femoral shaft fracture with intra-articular extension Left retrograde intramedullary nail distal 1/3 femoral shaft fracture with intra-articular extension H/H pre-op: 13.7 / 40 post-op: 8.4/24.3 The terms probable, suspected, likely, possible or still to be ruled out may be used if you are unable to determine the exact nature of a condition. Thank you for your consideration, Clinical Documentation [facility] WAQAR Gonzáles RN, BSN RN Office [phone] Office [phone]
[2020-02-18] MEDS: RIVAROXABAN 10 MG TABLET PO SCH (18:49)
[2020-02-19] MEDS: HYDROMORPHONE HCL 2 MG TABLET PO SCH ×5 (03:11→17:08)
[2020-02-19] MEDS: DICLOXACILLIN SODIUM 250 MG CAPSULE PO SCH ×3 (03:11→14:02)
[2020-02-19 05:48] LABS: HEMATOCRIT 29.6 % (36.0-47.0); MEAN CORPUSCULAR HEMOGLOBIN 32.2 pg (27.0-33.4); MEAN CORPUSCULAR HGB CONC 35.2 g/dL (32.0-36.0); MEAN CORPUSCULAR VOLUME 91 fl (80-97); PLATELET COUNT 271 10^3/uL (150-450); RED BLOOD COUNT 3.24 10^6/uL (3.72-5.28); RED CELL DISTRIBUTION WIDTH 13.5 % (11.5-14.0); WHITE BLOOD COUNT 6.3 10^3/uL (4.0-10.5)
[2020-02-19 05:56] LABS: HEMOGLOBIN 10.4 g/dL (12.0-15.5)
[2020-02-19 06:17] LABS: ANION GAP 6 (5-19); BLOOD UREA NITROGEN 10 mg/dL (7-20); CALCIUM 8.5 mg/dL (8.4-10.2); CARBON DIOXIDE 31 mmol/L (22-30); CHLORIDE 97 mmol/L (98-107); GLUCOSE 105 mg/dL (75-110); POTASSIUM 4.2 mmol/L (3.6-5.0)
--- NOTE | 2020-02-19 07:11 | PDOC PROGRESS REPORT ---
Subjective Progress Note for:: 02/19/20 Subjective:: Patient continues to complain of pain. Pain is improving. Also notes the lightheadedness has improved as well. Is slowly seeing progress w/ PT. Denies CP/SOB Reason For Visit: LEFT FEMUR FRACTURE Physical Exam Vital Signs: Temp Pulse Resp BP Pulse Ox 98.8 F 86 18 112/72 96 02/19/20 01:25 02/19/20 01:25 02/19/20 01:25 02/19/20 01:25 02/19/20 01:25 Intake & Output 02/18/20 02/19/20 02/20/20 06:59 06:59 06:59 Intake Total 3371 2180 Output Total 5600 2600 Balance -2229 -420 Weight 81 kg 79 kg Musculoskeletal exam: PRESENT: other - Left LE: Dressing clean/dry/intact no erythema or drainage. Moderate thigh swelling without change, intact plantarflexion/dorsiflexion. No sensory deficits. No calf tenderness. Results Laboratory Results: 02/19/20 04:32 02/19/20 04:32 02/18/20 02/18/20 02/18/20 09:37 09:37 09:37 WBC 6.4 RBC 2.53 L Hgb 8.3 L Hct 23.8 L MCV 94 MCH 32.9 MCHC 35.0 RDW 12.6 Plt Count 241 Seg Neutrophils % 58.0 Sodium 134.4 L Potassium 4.3 Chloride 97 L Carbon Dioxide 33 H Anion Gap 4 L BUN 9 Creatinine 0.67 Est GFR ( Amer) > 60 Glucose 126 H Calcium 8.5 Blood Type A POSITIVE Antibody Screen POSITIVE 02/19/20 02/19/20 04:32 04:32 WBC 6.3 RBC 3.24 L Hgb 10.4 L D Hct 29.6 L MCV 91 MCH 32.2 MCHC 35.2 RDW 13.5 Plt Count 271 Seg Neutrophils % Sodium 134.4 L Potassium 4.2 Chloride 97 L Carbon Dioxide 31 H Anion Gap 6 BUN 10 Creatinine 0.64 Est GFR ( Amer) > 60 Glucose 105 Calcium 8.5 Blood Type Antibody Screen Impressions: Femur X-Ray 02/15/20 00:00 IMPRESSION: IMAGE(S) OBTAINED DURING PROCEDURE. Fluoroscopy 02/15/20 00:00 IMPRESSION: IMAGE(S) OBTAINED DURING PROCEDURE. Head MRI 02/17/20 00:00 IMPRESSION: Subtle asymmetric hypoenhancement about the leftward aspect of the pituitary gland, seen only on a single coronal acquisition. Given the provided history, this could correspond to a small pituitary microadenoma. Correlation with prior imaging would be of benefit to confirm/assess for stability of this finding. Otherwise, no additional suspicious findings within the remainder of the brain parenchyma. copyright 2011 [employer]- All Rights Reserved Assessment & Plan - Diagnosis (1) Fracture of femur, left, closed Qualifiers: Encounter type: initial encounter Femur location: shaft Fracture morphology: spiral Fracture alignment: displaced Qualified Code(s): S72.342A - Displaced spiral fracture of shaft of left femur, initial encounter for closed fracture Is this a current diagnosis for this admission?: Yes Plan: S/P Retrograde IM Nail Left Distal Femur 1. Continue to mobilize with physical therapy and a touchdown weightbearing restriction on the left lower extremity. 2. Acute blood less anemia improved s/p 2u PRBCs 3. Pain control 4. D/C Home today if patients ramp is constructed so she can safely enter her home 5. FU outpatient 2 weeks 6. Patient to FU for mastitis with primary care physician. Patient understands the concerns of her breast issues. - Time Time Spent with patient: Less than 15 minutes
[2020-02-19] MEDS: RINGERS SOLUTION,LACTATED 1,000 ML IV PRN (08:11)
[2020-02-19] MEDS: TRAZODONE HCL 50 MG TABLET PO SCH (09:20)
[2020-02-19] MEDS: FAMOTIDINE 20 MG TABLET PO SCH (09:20)
[2020-02-19] MEDS: ONDANSETRON HCL INJ/PF 4 MG/2 ML SDV IV PRN (09:24)
--- NOTE | 2020-02-19 11:26 | PDOC PROGRESS REPORT ---
Subjective Progress Note for:: 02/19/20 Subjective:: Patient is doing well today. She has no acute new complaints and feels well. Reason For Visit: LEFT FEMUR FRACTURE Physical Exam Vital Signs: Temp Pulse Resp BP Pulse Ox 99.6 F 85 16 92/73 L 95 02/19/20 07:17 02/19/20 07:17 02/19/20 07:17 02/19/20 07:17 02/19/20 07:17 Intake & Output 02/18/20 02/19/20 02/20/20 06:59 06:59 06:59 Intake Total 3371 2180 Output Total 5600 2600 Balance -2226 -420 Weight 81 kg 79 kg General appearance: PRESENT: no acute distress, cooperative Neck exam: ABSENT: JVD Respiratory exam: PRESENT: unlabored. ABSENT: accessory muscle use, retraction GI/Abdominal exam: PRESENT: soft. ABSENT: tenderness Neurological exam: PRESENT: alert, awake Psychiatric exam: ABSENT: agitated, anxious Results Laboratory Results: 02/19/20 04:32 02/19/20 04:32 02/18/20 02/19/20 02/19/20 09:37 04:32 04:32 WBC 6.3 RBC 3.24 L Hgb 10.4 L D Hct 29.6 L MCV 91 MCH 32.2 MCHC 35.2 RDW 13.5 Plt Count 271 Sodium 134.4 L Potassium 4.2 Chloride 97 L Carbon Dioxide 31 H Anion Gap 6 BUN 10 Creatinine 0.64 Est GFR ( Amer) > 60 Glucose 105 Calcium 8.5 Blood Type A POSITIVE Antibody Screen POSITIVE Impressions: Femur X-Ray 02/15/20 00:00 IMPRESSION: IMAGE(S) OBTAINED DURING PROCEDURE. Fluoroscopy 02/15/20 00:00 IMPRESSION: IMAGE(S) OBTAINED DURING PROCEDURE. Head MRI 02/17/20 00:00 IMPRESSION: Subtle asymmetric hypoenhancement about the leftward aspect of the pituitary gland, seen only on a single coronal acquisition. Given the provided history, this could correspond to a small pituitary microadenoma. Correlation with prior imaging would be of benefit to confirm/assess for stability of this finding. Otherwise, no additional suspicious findings within the remainder of the brain parenchyma. copyright 2010 [employer]- All Rights Reserved Assessment and Plan - Diagnosis (1) Bloody discharge from left nipple Is this a current diagnosis for this admission?: Yes (2) Hyperprolactinemia Is this a current diagnosis for this admission?: Yes (3) Galactorrhea not associated with childbirth Is this a current diagnosis for this admission?: Yes (4) Unresolved mastitis Is this a current diagnosis for this admission?: Yes - Plan Summary Summary: Patient informs me that galacturia has been chronic for the past several years and that she sees a provider outpatient for this. Her prolactin is only mildly elevated at 37. Such mild elevation of prolactin is typically not associated with prolactinoma which typically has prolactin levels in the 200s or above. Head MRI showed very mild subtle hypoattenuation of the left pituitary which could be indicative of a microadenoma but also could just be artifactual. I do not recommend any intervention or medical therapy for this at this time. Patient should follow-up with a primary care provider outpatient for further management/work-up of her galactorrhea and mild hype rprolactinemia. In regards to patient's bloody nipple discharge, as noted, patient was diagnosed with mastitis and is being treated with a 10-day course of dicloxacillin 500 mg 4 times daily. I have highly emphasized the patient that she will need to get mammogram done in 1 month to evaluate for underlying malignancy. She expressed understanding. The prior provider has also recommended a aerospace project engineer for patient to follow-up by the name of Roberta Richey [phone]. No further recommendations at this time. Feel free to call with questions. [phone]. 02/19/2020: Patient was notably transfused 2 units of packed red blood cells yesterday with improvement of hemoglobin this morning. She seems well and denies any bleeding. Continue dicloxacillin on discharge as recommended above. Also follow the above recommendations upon discharge as patient will need follow-up with gynecology as well as a bilateral mammogram in 1 month. No further recommendations. I will sign off. - Time Time Spent with patient: Less than 15 minutes
[2020-02-19 16:17] VITALS: BP 100/64
[2020-02-19] MEDS: RIVAROXABAN 10 MG TABLET PO SCH (17:08)
--- NOTE | 2020-02-19 17:45 | PDOC DISCHARGE SUMMARY ---
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 Her prolactin is only mildly elevated at 37. Such mild elevation of prolactin is typically not associated with prolactinoma which typically has prolactin levels in the 200s or above. Head MRI showed very mild subtle hypoattenuation of the left pituitary which could be indicative of a microadenoma but also could just be artifactual. I do not recommend any intervention or medical therapy for this at this time. Patient should follow-up with a primary care provider outpatient for further management/work-up of her galactorrhea and mild hyperprolactinemia. In regards to patient's bloody nipple discharge, as noted, patient was diagnosed with mastitis and is being treated with a 10-day course of dicloxacillin 500 mg 4 times daily. I have highly emphasized the patient that she will need to get mammogram done in 1 month to evaluate for underlying malignancy. She expressed understanding. The prior provider has also recommended a network engineering advisor for patient to follow-up by the name of Roberta Richey [phone]. No further recommendations at this time. Feel free to call with questions. [phone]. 02/19/2020: Patient was notably transfused 2 units of packed red blood cells yesterday with improvement of hemoglobin this morning. She seems well and denies any bleeding. Continue dicloxacillin on discharge as recommended above. Also follow the above recommendations upon discharge as patient will need follow-up with gynecology as well as a bilateral mammogram in 1 month. No further recommendations. I will sign off. - Additional Information Discharge Diet: As Tolerated Discharge Activity: No Driving, No Lifting Over 10 Pounds, No Lifting/Push/Pulling Referrals: ADONAY RASMUSSEN DO [ACTIVE STAFF] - 03/02/20 8:10 am () NICHOLAS LEON FNP-C [NURSE PRACTITIONER] - 02/20/20 11:45 am (have patient go straight to office when discharged if before appt. date.) Prescriptions: Hydromorphone HCl [Dilaudid 2 mg Tablet] 2 mg PO Q6 PRN #25 tablet PRN Reason: Home Medications: Hydromorphone HCl [Dilaudid 2 mg Tablet] 2 mg PO Q6 PRN #25 tablet 02/19/20 History of Present Illiness History of Present Illness: MARGARET KELLY is a healthy 54 year old female who this evening was outside walking when she was attempting to check on her friend she subsequently hit a ditch and fell resulting in a twisting injury to her left lower extremity. She had significant swelling and pain at the time of injury and was unable to weight-bear. Patient was brought to emergency room where radiographs confirmed diagnosis. Pain worse with any attempted motion. Had radiographs demonstrating femur fracture. Pain was improved with pain medication. Denies numbness or tingling. Pain 06/27. Hospital Course Hospital Course: Patient was found to have distal femur fracture in the emergency room. At that point given amount of displacement decision was made to proceed with operative intervention. Patient was seen and evaluated by the hospitalist service who deemed the patient stable for operative intervention, however patient did have elevated LFTs which they recommended follow-up as an outpatient.. Patient was admitted to the orthopedic service on 01/19/2020. On 01/19/2020 patient underwent retrograde IM nail left distal femur fracture. Postoperatively patient had considerable pain and was continued on Dilaudid along Dilaudid IV along with oxycodone and OxyContin. Throughout her hospital course she did progress with physical therapy and was able to ambulate maintaining partial weightbearing status. Patient was noted to have acute blood loss anemia and thus 2 units of packed red blood cells with antibodies were given which increased the patient's H&H to 10.4/29.6. During her hospitalization patient did have galactorrhea and bleeding discharge from her breast. Hospital service evaluated the patient for this issue she was noted to have mastitis and thus was started on doxacillin for adequate treatment. She also obtained MRI of the brain which demonstrated questionable findings of microadenoma but were deemed likely artificial in nature and thus treatment for prolactinoma or microadenoma was not recommended. Current treatment recommendations per hospitalist was continue antibiotics and patient was to follow-up with gynecology upon discharge for further evaluation of breast cancer. As per the patient's hospital course she continued progress with physical therapy. Pain notably improved with p.o. Dilaudid. On 02/19/2020 patient was found to be orthopedically and medically stable for discharge to home. Physical Exam Vital Signs: Temp Pulse Resp BP Pulse Ox 99.2 F 87 16 103/71 92 02/19/20 16:06 02/19/20 16:06 02/19/20 16:06 02/19/20 16:06 02/19/20 16:06 Intake & Output 02/18/20 02/19/20 02/20/20 06:59 06:59 06:59 Intake Total 3371 2180 360 Output Total 5600 2600 Balance -2229 -420 360 Weight 81 kg 79 kg General appearance: PRESENT: no acute distress, well-developed, well-nourished Head exam: PRESENT: atraumatic, normocephalic Eye exam: PRESENT: conjunctiva pink, EOMI, PERRLA. ABSENT: scleral icterus Ear exam: PRESENT: normal external ear exam Mouth exam: PRESENT: moist, tongue midline Neck exam: ABSENT: carotid bruit, JVD, lymphadenopathy, thyromegaly Respiratory exam: PRESENT: clear to auscultation loida. ABSENT: rales, rhonchi, wheezes Cardiovascular exam: PRESENT: RRR. ABSENT: diastolic murmur, rubs, systolic murmur Pulses: PRESENT: normal dorsalis pedis pul Vascular exam: PRESENT: normal capillary refill GI/Abdominal exam: PRESENT: normal bowel sounds, soft. ABSENT: distended, guarding, mass, organolmegaly, rebound, tenderness Rectal exam: PRESENT: deferred Gentrourinary exam: PRESENT: other Extremities exam: PRESENT: full ROM. ABSENT: calf tenderness, clubbing, pedal edema Musculoskeletal exam: PRESENT: other - Left lower extremity: Dressing clean/dry/intact no erythema or drainage. Moderate thigh swelling without change, intact plantarflexion/dorsiflexion. No sensory deficits. No calf tenderness. Neurological exam: PRESENT: alert, awake, oriented to person, oriented to place, oriented to time, oriented to situation, CN II-XII grossly intact. ABSENT: motor sensory deficit Psychiatric exam: PRESENT: appropriate affect, normal mood. ABSENT: homicidal ideation, suicidal ideation Skin exam: PRESENT: dry, intact, warm. ABSENT: cyanosis, rash Results Laboratory Results: WBC 6.3 10^3/uL (4.0-10.5) 02/19/20 04:32 RBC 3.24 10^6/uL (3.72-5.28) L 02/19/20 04:32 Hgb 10.4 g/dL (12.0-15.5) L D 02/19/20 04:32 Hct 29.6 % (36.0-47.0) L 02/19/20 04:32 MCV 91 fl (80-97) 02/19/20 04:32 MCH 32.2 pg (27.0-33.4) 02/19/20 04:32 MCHC 35.2 g/dL (32.0-36.0) 02/19/20 04:32 RDW 13.5 % (11.5-14.0) 02/19/20 04:32 Plt Count 271 10^3/uL (150-450) 02/19/20 04:32 Lymph % (Auto) 28.1 % (13-45) 02/18/20 09:37 [place] % (Auto) 11.8 % (3-13) 02/18/20 09:37 Eos % (Auto) 1.8 % (0-6) 02/18/20 09:37 Baso % (Auto) 0.3 % (0-2) 02/18/20 09:37 Absolute Neuts (auto) 3.7 10^3/uL (1.7-8.2) 02/18/20 09:37 Absolute Lymphs (auto) 1.8 10^3/uL (0.5-4.7) 02/18/20 09:37 Absolute Monos (auto) 0.8 10^3/uL (0.1-1.4) 02/18/20 09:37 Absolute Eos (auto) 0.1 10^3/uL (0.0-0.6) 02/18/20 09:37 Absolute Basos (auto) 0.0 10^3/uL (0.0-0.2) 02/18/20 09:37 Seg Neutrophils % 58.0 % (42-78) 02/18/20 09:37 PT 11.9 SEC (11.4-15.4) 02/15/20 05:20 INR 0.88 02/15/20 05:20 Sodium 134.4 mmol/L (137-145) L 02/19/20 04:32 Potassium 4.2 mmol/L (3.6-5.0) 02/19/20 04:32 Chloride 97 mmol/L (98-107) L 02/19/20 04:32 Carbon Dioxide 31 mmol/L (22-30) H 02/19/20 04:32 Anion Gap 6 (5-19) 02/19/20 04:32 BUN 10 mg/dL (7-20) 02/19/20 04:32 Creatinine 0.64 mg/dL (0.52-1.25) 02/19/20 04:32 Est GFR ( Amer) > 60 (>60) 02/19/20 04:32 Est GFR (MDRD) Non-Af > 60 (>60) 02/19/20 04:32 Glucose 105 mg/dL (75-110) 02/19/20 04:32 Calcium 8.5 mg/dL (8.4-10.2) 02/19/20 04:32 Total Bilirubin 0.2 mg/dL (0.2-1.3) 02/15/20 05:20 Direct Bilirubin 0.0 mg/dL (0.0-0.4) 02/15/20 05:20 Neonat Total Bilirubin Not Reportable 02/15/20 05:20 Neonat Direct Bilirubin Not Reportable 02/15/20 05:20 Neonat Indirect Bili Not Reportable 02/15/20 05:20 AST 75 U/L (14-36) H 02/15/20 05:20 ALT 91 U/L (<35) H 02/15/20 05:20 Alkaline Phosphatase 58 U/L (38-126) 02/15/20 05:20 Total Protein 7.3 g/dL (6.3-8.2) 02/15/20 05:20 Albumin 4.1 g/dL (3.5-5.0) 02/15/20 05:20 TSH 2.06 uIU/mL (0.47-4.68) 02/16/20 05:20 Free T4 1.12 ng/dL (0.78-2.19) 02/16/20 05:20 Free T3 pg/mL 4.25 pg/mL (2.77-5.27) 02/16/20 05:20 Prolactin 37.4 ng/mL (3.0-18.6) H 02/16/20 05:20 SARS-CoV-2 (PCR) NEGATIVE (NEGATIVE) 02/15/20 06:00 Blood Type A POSITIVE 02/18/20 09:37 Blood Type Confirm A POSITIVE 02/15/20 09:35 Antibody Screen POSITIVE 02/18/20 09:37 Antibody Identification Anti-M 02/18/20 09:37 Antigen Identification M Antigen - NEGATIVE 02/15/20 05:20 Crossmatch See Detail 02/18/20 09:37 Impressions: Femur X-Ray 02/15/20 00:00 IMPRESSION: Comminuted fracture of the femur, as above. Fracture lines extend to the intercondylar region. copyright 2011 [employer]- All Rights Reserved Femur X-Ray 02/15/20 00:00 IMPRESSION: IMAGE(S) OBTAINED DURING PROCEDURE. Fluoroscopy 02/15/20 00:00 IMPRESSION: IMAGE(S) OBTAINED DURING PROCEDURE. Head MRI 02/17/20 00:00 IMPRESSION: Subtle asymmetric hypoenhancement about the leftward aspect of the pituitary gland, seen only on a single coronal acquisition. Given the provided history, this could correspond to a small pituitary microadenoma. Correlation with prior imaging would be of benefit to confirm/assess for stability of this finding. Otherwise, no additional suspicious findings within the remainder of the brain parenchyma. copyright 2011 [employer]- All Rights Reserved Plan Plan of Treatment: Patient is to continue partial weightbearing left lower extremity at home. She will follow in the office in 2 weeks for recheck. Patient is to call with any questions or concerns including increasing redness, swelling, pain, temperature greater than 101.5 or further questions. Patient is also to follow-up with gynecology for breast cancer screening along with primary care physician for mastitis and elevated LFTs. Patient was read above instructions listed above instructions and orthopedically and medically stable for discharge to home. Stroke Is this a Stroke Patient?: No Acute Heart Failure - Is this a Heart Failure Patient?: No
== END 2020-02-19 18:13 | disposition home or self-care (01) | DRG 481 ==
LOC: ER 04:40 → EH 05:50 → 4N 11:56
PROVIDERS: ADMIT Orthopaedic Surgery; ATTEND Orthopaedic Surgery
PROC: 0QS906Z Reposition Left Femoral Shaft with Intramedullary Internal Fixation Device, Open Approach (ICD-10-PCS; principal; 2020-02-15 08:00)
PROC: 30233N1 Transfusion of Nonautologous Red Blood Cells into Peripheral Vein, Percutaneous Approach (ICD-10-PCS; 2020-02-18)
DX: S72.352A Displaced comminuted fracture of shaft of left femur, initial encounter for closed fracture (principal); D62 Acute posthemorrhagic anemia; E22.1 Hyperprolactinemia; S72.462A Displaced supracondylar fracture with intracondylar extension of lower end of left femur, initial encounter for closed fracture; W01.0XXA Fall on same level from slipping, tripping and stumbling without subsequent striking against object, initial encounter; Y92.89 Other specified places as the place of occurrence of the external cause; N61.0 Mastitis without abscess; Z88.2 Allergy status to sulfonamides; Z86.14 Personal history of Methicillin resistant Staphylococcus aureus infection; F17.210 Nicotine dependence, cigarettes, uncomplicated; Z91.030 Bee allergy status; R79.89 Other specified abnormal findings of blood chemistry; Z20.828 Contact with and (suspected) exposure to other viral communicable diseases
CPT/HCPCS: 01230; 36415; 36430; 70553; 71045; 80048; 80053; 84146; 84439; 84443; 84481; 85025; 85027; 85610; 86850; 86870; 86900; 86901; 86920; 86922; 87040; 87635; 93005; 93010; 96374; 96375; 99140; 99284; A9576; C1713; C1769; C9803; J0131; J1170; J1885; J2250; J2270; J2370; J2405; J2704; J3010; J3490; J7040; J7120; P9016